=== PATIENT | male | born 1970 | race Caucasian/White ===

== ENCOUNTER 2021-06-14 20:05 | Emergency (ER) | payer BC ==
[2021-06-14] MEDS ORDERED: Aspirin 81 MG Tab.Chew PO ONE (20:14)
[2021-06-14] MEDS ORDERED: Famotidine 20 MG/2 ML SDV IVPUSH ONE (20:14)
[2021-06-14] MEDS ORDERED: Nitroglycerin 0.4 MG Tab.SL SL PRN (20:16)
[2021-06-14] MEDS ORDERED: Alum Hydro/Mag Hydro/Simeth XS 15 ML, Lidocaine 2% 5 ML PO ONE ×2 (20:16)
[2021-06-14 20:48] LABS: CARBON DIOXIDE,CO2 27.5 mmol/L (21.0-32.0); POTASSIUM,K 3.3 mmol/L (3.5-5.1)
[2021-06-14] MEDS ORDERED: Heparin Sodium 5,000 Units/ML Vial IVPUSH ONE (20:53)
[2021-06-14] MEDS ORDERED: Heparin Sodium/0.45% NaCl 500 ML IV SCH (21:00)
== END 2021-06-14 22:05 ==
LOC: MW.ED 20:05
DX: I21.4 Non-ST elevation (NSTEMI) myocardial infarction (principal)
CPT/HCPCS: 36415; 71045; 80053; 84484; 85025; 85379; 85730; 93005; 96365; 96375; 99285; A9270; J1644; J3490

== ENCOUNTER 2023-03-28 09:44 | Day surgery (SDC) | payer BC ==
[~2023-03-28 09:44] MED LIST: Lactated Ringers 1,000 ML IV SCH
[2023-03-28] MEDS ORDERED: Ondansetron 4 MG/2 ML SDV ONE (10:34)
[2023-03-28] MEDS ORDERED: propofoL 50 ML ONE (10:34)
[2023-03-28] MEDS ORDERED: Phenylephrine HCl 0.5 MG/5 ML AMP ONE (10:48)
[2023-03-28] MEDS ORDERED: Lidocaine 2% 5 ML SDV ONE (10:49)
[2023-03-28] MEDS ORDERED: Lactated Ringers 1,000 ML IV SCH (11:15)
== END 2023-03-28 12:05 | disposition home or self-care (01) ==
LOC: MW.SDS 09:44
PROVIDERS: ATTEND Surgery
DX: K62.5 Hemorrhage of anus and rectum (principal); I25.10 Atherosclerotic heart disease of native coronary artery without angina pectoris; K64.4 Residual hemorrhoidal skin tags; E78.00 Pure hypercholesterolemia, unspecified; I10 Essential (primary) hypertension; I25.2 Old myocardial infarction; F17.210 Nicotine dependence, cigarettes, uncomplicated; Z79.82 Long term (current) use of aspirin; Z79.899 Other long term (current) drug therapy; Z80.0 Family history of malignant neoplasm of digestive organs; Z95.5 Presence of coronary angioplasty implant and graft
CPT/HCPCS: 45378; J2371; J2405; J2704; J7120; 00811; J3490

== ENCOUNTER 2023-05-17 15:51 | Emergency (ER) | payer BC ==
[2023-05-17] MEDS ORDERED: Acetaminophen 325 MG Tab PO ONE (16:56)
[2023-05-17] MEDS ORDERED: Ibuprofen 400 MG Tab PO ONE (16:56)
[2023-05-17] MEDS ORDERED: Albuterol 0.083% 2.5 MG/3 ML Neb Soln NEB ONE (17:03)
[2023-05-17 17:38] LABS: CORONAVIRUS COVID-19 NAA NEGATIVE (NEGATIVE); INFLUENZA A NAA POSITIVE (NEGATIVE); INFLUENZA B NAA NEGATIVE (NEGATIVE); RESPIRATORY SYNCYTIAL VIR NAA NEGATIVE (NEGATIVE)
== END 2023-05-17 19:15 | disposition home or self-care (01) ==
LOC: MW.ED 15:51
DX: J10.1 Influenza due to other identified influenza virus with other respiratory manifestations (principal); I10 Essential (primary) hypertension; E78.00 Pure hypercholesterolemia, unspecified; I25.10 Atherosclerotic heart disease of native coronary artery without angina pectoris; Z79.82 Long term (current) use of aspirin; Z79.01 Long term (current) use of anticoagulants; Z20.822 Contact with and (suspected) exposure to COVID-19; Z95.5 Presence of coronary angioplasty implant and graft; Z79.899 Other long term (current) drug therapy
CPT/HCPCS: 0241U; 71046; 99284; A9270; J7620-GY